=== PATIENT | female | born 1960 | race Caucasian/White ===

== ENCOUNTER 2023-05-29 09:02 | Day surgery (SDC) | payer OTHER ==
[~2023-05-29] VITALS: Ht 147.3 cm; Wt 78.9 kg
[2023-05-29] MEDS ORDERED: diphenhydrAMINE 50 MG/ML VIAL ONE (11:12)
[2023-05-29] MEDS: fentaNYL citrate 0.05 MG/ML VIAL ONE (11:56)
[2023-05-29] MEDS: MIDAZOLAM 5 MG/5 ML VIAL ONE (11:58)
== END 2023-05-29 12:58 | disposition home or self-care (01) ==
LOC: MOR 09:02 → MMU 09:04 → MOR 12:58
PROVIDERS: ATTEND Internal Medicine Gastroenterology
DX: K21.00 Gastro-esophageal reflux disease with esophagitis, without bleeding (principal); K44.9 Diaphragmatic hernia without obstruction or gangrene; E11.9 Type 2 diabetes mellitus without complications; Z79.84 Long term (current) use of oral hypoglycemic drugs; Z79.899 Other long term (current) drug therapy
CPT/HCPCS: 43239; 82948; 88305; 88313; J1200; J2250; J3010; J7030